=== PATIENT | female | born 1950 | race Caucasian/White ===

== ENCOUNTER 2017-06-11 09:12 | Inpatient (IN) | payer OTHER, MEDICARE ==
[~2017-06-11] VITALS: Ht 165.1 cm; Wt 105.0 kg
[~2017-06-11 09:12] MED LIST: ASPI81TA11 PO; ESSE250T PO; FISH1000 PO; GLIP5TAB8 PO; LEVO75TA3 PO; LISI10TA3 PO; METF1000 PO; METO25TA3 PO; PRAV20TA2 PO; TRAM50TA PO
[2017-06-11] MEDS ORDERED: VANCOMYCIN 1000 MG/NS 250 ML (for <70 kg) IV SCH ×2 (09:45)
[2017-06-11] MEDS ORDERED: POVIDONE IODINE 7.5% SCRUB 118 ML BOTTLE TOPICAL SCH (09:45)
[2017-06-11] MEDS ORDERED: POVIDONE IODINE 5% (ANTISEPSIS KIT) 4 APPLICATIONS EACH NARE PRN (10:00)
[2017-06-11] MEDS ORDERED: CHLORHEXIDINE GLUCONATE 2 % 1 PACK (2 CLOTHS) TOPICAL PRN (10:00)
[2017-06-11] MEDS ORDERED: METOPROLOL TARTRATE 25 MG TAB PO PRN (10:00)
[2017-06-11] MEDS ORDERED: LACTATED RINGER'S 1000 ML IV PRN (10:00)
[2017-06-11] MEDS ORDERED: SODIUM CHLORID 0.9% 500 ML IV PRN (10:00)
[2017-06-11] MEDS ORDERED: INSULIN HUMAN REGULAR 1,000 UNITS/10 ML VIAL SQ PRN (10:00)
[2017-06-11] MEDS ORDERED: GLUCOCIL PO (10:09)
[2017-06-11] MEDS ORDERED: ceFAZolin INJ 1,000 MG VIAL ONE (10:42)
[2017-06-11] MEDS ORDERED: GELFOAM SIZE 100 ONE (10:42)
[2017-06-11] MEDS ORDERED: GENTAMICIN SULFATE 80 MG/2 ML VIAL ONE (10:42)
[2017-06-11] MEDS ORDERED: NEOSTIGMINE 3 MG/3 ML SYR IV ONE (13:26)
[2017-06-11] MEDS ORDERED: ePHEDrine/NS 25 MG/5 ML SYR IV ONE (13:26)
[2017-06-11] MEDS ORDERED: LACTATED RINGER'S 1000 ML INJ 2,000 ML IV ONE (13:26)
[2017-06-11] MEDS ORDERED: ONDANSETRON HCL 4 MG/2 ML VIAL IV PUSH ONE (13:26)
[2017-06-11] MEDS ORDERED: PROPOFOL 200 MG/20 ML AMP IV ONE (13:26)
[2017-06-11] MEDS ORDERED: ceFAZolin 2 GM PREMIX 50 ML ONE (14:20)
[2017-06-11] MEDS ORDERED: ACETAMINOPHEN 1000 MG/100 ML 0 ML IV ONE (14:30)
[2017-06-11] MEDS ORDERED: MIDAZOLAM HCL 2 MG/2 ML VIAL ONE (14:30)
[2017-06-11] MEDS ORDERED: FAMOTIDINE 20 MG/2 ML VIAL ONE (14:30)
[2017-06-11] MEDS ORDERED: DEXAMETHASONE SOD PHOS 4 MG/ML VIAL ONE (14:31)
[2017-06-11] MEDS ORDERED: ceFAZolin 2 GM PREMIX 50 ML IV SCH (15:30)
[2017-06-11] MEDS ORDERED: HYDROmorphone HCL PF 2 MG/ML VIAL ONE (16:46)
[2017-06-11] MEDS ORDERED: Post-op Orders (for Pharmacy) MISC XX ONE (17:45)
[2017-06-11] MEDS ORDERED: ACETAMINOPHEN/HYDROcodone 325 MG/7.5 MG TAB PO PRN ×2 (17:45)
[2017-06-11] MEDS ORDERED: ONDANSETRON HCL 4 MG/2 ML VIAL IV PRN (17:45)
[2017-06-11] MEDS ORDERED: SODIUM CHLORIDE 0.9% FLUSH 5 ML FLUSH IVF PRN (17:45)
[2017-06-11] MEDS ORDERED: BISACODYL 10 MG SUPP RECTAL PRN (17:45)
--- NOTE | 2017-06-11 17:46 | PD.OP ---
Operative Report Date of Surgery: Jun 11, 2017 Preoperative Diagnosis: status post anterior cervical fusion C6 7, stable. Osteophyte disc complex C4 5 and C5 6. Cervical spinal stenosis. Cervical radiculopathy Postoperative Diagnosis: Same Procedure: Posterior cervical fusion C4 5 and C5 6. Posterior spinal segmental instrumentation with bilateral facet cages and facet screw fixation C4 5 and C5 6. Left posterior iliac crest bone graft. Anesthesia: Gen. Surgeon: Wagner Burton Fingerprint Technician(s): STEFAN Lopez Operation and Findings: EBL: 50 cc INDICATIONS: This patient is a 66-year-old female with significant neck and arm pain. Investigative studies shows significant degenerative changes at C4 5 and C56 which is adjacent to the previous fusion of C6 7. The patient is being scheduled for ACDF at those levels. The patient's having staged posterior cervical fusion. The patient is at high risk of a nonunion because the patient' s previous anterior cervical fusion NOTE: Jacqueline Lopez PA-C was present for the entire surgical procedure as my dental assistant. In my medical opinion her skill and care was necessary for proper management of this patient PROCEDURE: The patient was brought the operating room and anesthetized in the supine position. The patient was positioned prone on a Krish table. The arms were placed out along the side and taping was utilized to ensure adequate visualization. AP and lateral radiographic images were used identifying the proper level and allowing excellent exposure for purpose of the cervical fusion. A timeout was done and antibiotics were given within a routine time window. A small incision was made over the left iliac crest bone graft. A series of cores of bone graft were harvested with a special percutaneous device. The bone graft was taken to the back table to be mixed with stem cell bone graft for the later part of the case Using AP and lateral radiographs, skin markings were made. On the right side and 18-gauge spinal needle was placed down to the proper level. The left side a separate incision was made and we used the [employer] system. Exposure was afforded down to the proper level. Under visualization, a chisel was placed down to the C5 6 level. This was confirmed under radiographs to be in proper position. Exposure was satisfactory. This is placed down into the facet joint at that level. A decorticating device was utilized decorticating the bone of the facet above and below. A retractor was placed down over the access chisel allowing exposure to the joint and exposure to the articular cartilage. A drilling system was utilized removing cartilage and bone this region followed by a rasp. On the back table demineralized bone matrix was mixed with Nucel stem cells and a autogenous bone graft. A combination of both these were then paced placed into proper cages. The cages were impacted into the proper position and checked again under AP and lateral fluoroscopic images. A transfixation screw was placed into the cage having excellent fixation into the facet joint of the level above. The back side of the cage was filled with additional bone graft which was tamped into position. The retractor was removed. On the right side a separate incision was made. Using the likewise sequence of access to the same level, an incision was made allowing visualization for placement of an access chisel which was placed into the joint followed by decortication with excellent visualization. A final retractor was positioned holding this while we were able to drill and use the rasp. The joint was prepared and we created a space for the cage. The cage was filled with bone graft and impacted in proper position. A transfixation screw was fixated at that time and alignment was satisfactory. Additional bone graft placed along the posterior aspect of the cage and the facet joint and was tamped into position. At the C4 5 level, this was repeated in the likewise fashion. A decorticating device was utilized decorticating the bone of the facet above and below. A retractor was placed down over the access chisel allowing exposure to the joint and exposure to the articular cartilage. A drilling system was utilized removing cartilage and bone this region followed by a rasp. On the back table demineralized bone matrix was mixed with Nucel stem cells and a autogenous bone graft. A combination of both these were then paced placed into proper cages. The cages were impacted into the proper position and checked again under AP and lateral fluoroscopic images. A transfixation screw was placed into the cage having excellent fixation into the facet joint of the level above. The back side of the cage was filled with additional bone graft which was tamped into position. The retractor was removed. On the right side this was repeated in the likewise fashion. Using the likewise sequence of access to the same level. An access chisel was placed into the joint followed by decortication with excellent visualization. A final retractor was positioned holding this while we were able to drill and use the rasp. The joint was prepared and we created a space for the cage. The cage was filled with bone graft and impacted in proper position. A transfixation screw was fixated at that time and alignment was satisfactory. Additional bone graft placed along the posterior aspect of the cage and the facet joint and was tamped into position. Intraoperative x-rays in AP and lateral plane showed excellent positioning and stabilization . The wound was irrigated copiously. Hemostasis was controlled. The fascia was closed with interrupted Vicryl suture skin and subcutaneous tissue with 3-0 Vicryl suture followed by Dermabond. The sponge count needle counts and sponge counts were all correct. The patient tolerated the procedure well as taken to the recovery room in satisfactory condition. FINDINGS: There was severely arthritic facet joints the left at C4 5 and C5 6. The final fixation was felt be very satisfactory. No complication was appreciated. Wagner Burton MD Jun 11, 2017 17:46
[2017-06-11] MEDS ORDERED: HYDR-3580 PO (17:47)
--- NOTE | 2017-06-11 18:02 | RADRPT ---
EXAM DATE/TIME: 06/11/2017 17:30 [facility] COMPARISON: No previous studies available for comparison. INDICATIONS : C4-C6 posterior cervical fusion. MEDICAL HISTORY : None. SURGICAL HISTORY : Fusion, cervical. ENCOUNTER: Initial ACUITY: 1 day PAIN SCORE: Non-responsive. LOCATION: Bilateral neck FINDINGS: The patient is status post posterior cervical fusion at C4-C6. Bilateral reticular facet fusion hardw are at C4-5 and C5-6 articular facet joints noted. In addition ACDF hardware at C6-7 is present. CONCLUSION: Postsurgical changes. Eleuterio Plasencia MD on June 11, 2017 at 18:00 Board Certified Radiologist. This report was verified electronically.
[2017-06-11] MEDS ORDERED: fentaNYL CITRATE 250 MCG/5 ML AMP ONE (18:09)
[2017-06-11] MEDS: LACTATED RINGER'S 1000 ML INJ 1,000 ML IV SCH (18:15)
[2017-06-11] MEDS ORDERED: *morphine SULFATE 8 MG/ML PERIprocedure ONLY ONE ×2 (18:17→18:45)
[2017-06-11] MEDS ORDERED: *LABETALOL HCL 100 MG/20 ML VIAL PERIprocedural Use ONLY ONE (18:18)
[2017-06-11] MEDS ORDERED: *ENALAPRILAT 1.25 MG/ML VIAL PERIprocedural Use ONLY ONE ×2 (18:38→18:59)
[2017-06-11 19:38] VITALS: BP 186/84; PULSE 76; RESP 18; TEMP 96.5; O2SAT 96
[2017-06-11] MEDS ORDERED: DO NOT ADM ANY ANTICOAGULANT DRUGS PRN (19:45)
[2017-06-11] MEDS: SODIUM CHLORIDE 0.9% FLUSH 5 ML FLUSH IVF SCH (21:00)
[2017-06-11 23:30] VITALS: BP 166/74; PULSE 77; RESP 18; TEMP 97.5; O2SAT 96
[2017-06-12] MEDS: MORPHINE SULFATE 4 MG/ML INJ IV PUSH PRN ×2 (01:18→05:16)
[2017-06-12 04:25] VITALS: BP 157/70; PULSE 78; RESP 18; TEMP 96.7; O2SAT 97
[2017-06-12] MEDS ORDERED: LEVOTHYROXINE SODIUM 75 MCG TAB PO SCH (06:00)
[2017-06-12] MEDS: LACTATED RINGER'S 1000 ML INJ 1,000 ML IV SCH (06:10)
[2017-06-12] MEDS: glipiZIDE 5 MG TAB PO SCH ×2 (06:52→16:00)
[2017-06-12 08:00] VITALS: BP 131/59; PULSE 76; RESP 17; TEMP 97; O2SAT 94
--- NOTE | 2017-06-12 08:37 | HHI.DCPOC ---
Discharge Care Plan Diagnosis: (1) Cervical spinal stenosis (2) History of cervical spinal surgery Your Health Problems Are: Incision/Drains Swelling Goals to Promote Your Health * To prevent worsening of your condition and complications * To maintain your health at the optimal level Directions to Meet Your Goals Take your medications as prescribed Follow your dietary instruction Follow activity as directed Keep your appointments as scheduled Take your immunizations and boosters as scheduled If your symptoms worsen call your PCP, if no PCP go to Urgent Care Center or Emergency Room Smoking is Dangerous to Your Health. Avoid second hand smoke Call the 24-hour hour crisis hotline for domestic abuse at Amparo Lui Jun 12, 2017 08:37
[2017-06-12] MEDS ORDERED: METOPROLOL TARTRATE 25 MG TAB PO SCH (09:00)
[2017-06-12] MEDS ORDERED: LISINOPRIL 10 MG TAB PO SCH (09:00)
[2017-06-12] MEDS ORDERED: PRAVASTATIN SOD 20 MG TAB PO SCH (09:00)
[2017-06-12] MEDS ORDERED: metFORMIN HCL 500 MG TAB PO SCH (09:00)
[2017-06-12] MEDS: SODIUM CHLORIDE 0.9% FLUSH 5 ML FLUSH IVF SCH (09:00)
[2017-06-12] MEDS ORDERED: MULTIVITAMINS/MINERALS THERAPEUTIC TAB PO SCH (09:00)
[2017-06-12] MEDS ORDERED: DOCUSATE SODIUM 100 MG CAP PO SCH (09:00)
[2017-06-12 10:06] VITALS: O2SAT 95
[2017-06-12 12:00] VITALS: BP 134/66; PULSE 86; RESP 17; TEMP 96.5; O2SAT 96
--- NOTE | 2017-06-12 13:26 | HHI.DS ---
Discharge Summary Admission Date Jun 11, 2017 at 09:12 Discharge Date: Jun 12, 2017 Admitting Diagnosis see below Diagnosis: (1) Cervical spinal stenosis Diagnosis: Principal ICD Codes: M48.02 - Spinal stenosis, cervical region (2) History of cervical spinal surgery Diagnosis: Secondary ICD Codes: Z98.890 - Other specified postprocedural states Procedures Posterior cervical fusion C45, C56, bone graft. Brief History This is a 66 year old female patient with a long history of neck and arm pain. She had an ACDF in 1998 at C67 and did well for a period of time. After several years she began having neck and arm pain and sought out treatment with a chiropracter. She did not see much improvement so she sought out care with Dr. Kwabena Burton. Imaging studies were performed showing advanced degenerative changes C45 and C56. Conservative measures were attempted with meloxicam and a cervical collar. She continued to decline so a cervical MRI was ordered. She was found to have substantial stenosis C45 and C56. Surgical treatment was recommended beginning with posterior cervical fusion followed by staged anterior cervical fusion. She was referred to Dr. Wagner Burton for the posterior procedure. She agreed and presents for the above posterior cervical fusion C4-6. Hospital Course Surgical treatment was performed on the day of admission without complication. She recovered well in PACU and was transferred to the orthopaedic floor. Pain was controlled with IV and oral medications. She was compliant with her cervical collar and all restrictions. After 1 days she was found to be stable and discharged home with instruction to continue her cervical collar for 4-5 weeks, to pursue a soft, high fiber diet for 3-5 days and to follow up postop for staged surgery in 2-3 weeks. Pt Condition on Discharge: Stable Discharge Disposition: Discharge Home Discharge Instructions Diet Instructions: Diabetic Diet, Soft Diet, High Fiber Diet Activities You Can Perform: Weight Bearing as [place], See Additionl Instruction Activities to Avoid: Strenuous Activity Additional Activity Instruc.: Cervical brace full-time New Medications: Hydrocodone-Acetaminophen (Hydrocodone-Acetaminophen) 7.5-325 mg Tab 1 TAB PO Q4H PRN for pain, #50 TAB Continued Medications: Aspirin DR (Aspirin EC) 81 Mg Tabdr 81 MG PO DAILY, TAB 0 Refills Glipizide (Glipizide) 5 Mg Tab 2.5 MG PO BIDAC for Blood Sugar Management, #60 TAB 0 Refills Take 30 minutes before a meal Levothyroxine (Levothyroxine) 75 Mcg Tab 75 MCG PO DAILY for Thyroid, #30 TAB 0 Refills Lisinopril (Lisinopril) 10 Mg Tab 10 MG PO DAILY, #30 TAB 0 Refills Magnesium (Magnesium) 250 Mg Tab 1 TAB PO BID for Nutritional Supplement Metformin (Metformin) 1,000 Mg Tab 1000 MG PO DAILY for Blood Sugar Management, #30 TAB 0 Refills With a meal Metoprolol Tartrate (Metoprolol Tartrate) 25 Mg Tab 25 MG PO DAILY for Blood Pressure Management, #30 TAB 0 Refills [place]-3 Fatty Acids (Fish Oil) 1,000 Mg Cap 1 CAP PO DAILY for Nutritional Supplement Pravastatin (Pravastatin) 20 Mg Tab 20 MG PO DAILY for Cholesterol Management, #30 TAB 0 Refills Tramadol (Tramadol) 50 Mg Tab 50 MG PO Q8H PRN for PAIN, TAB 0 Refills [Glucocil] () 1 CAP PO DAILY Amparo Lui Jun 12, 2017 13:26
[2017-06-12] MEDS ORDERED: WALKER WHEELS/F1 MIS (13:27)
--- NOTE | 2017-06-12 13:30 | PD.ORT.PN ---
Subjective Subjective Remarks She states she has moderate posterior neck pain. She denies any new radiating arm pain. Her throat is quite sore but she states she can swallow. She feel off balance and has questions about using a walker. She has many questions about her surgery yesterday and her scheduled surgery in 2 weeks. Objective Vitals Vital Signs Date Time Temp Pulse Resp B/P (MAP) Pulse Ox O2 Delivery O2 Flow Rate FiO2 06/12/17 12:00 96.5 86 17 134/66 (88) 96 06/12/17 10:06 95 06/12/17 08:00 97.0 76 17 131/59 (83) 94 06/12/17 05:35 21 06/12/17 04:25 96.7 78 18 157/70 (99) 97 06/11/17 23:30 97.5 77 18 166/74 (104) 96 06/11/17 19:38 96.5 76 18 186/84 (118) 96 06/11/17 19:05 67 12 179/83 (115) 99 Nasal Cannula 3 06/11/17 18:45 71 15 176/79 (111) 98 Nasal Cannula 3 06/11/17 18:30 72 12 170/65 (100) 98 Nasal Cannula 4 06/11/17 18:15 77 19 187/85 (119) 98 Nasal Cannula 4 06/11/17 18:02 98.5 84 15 179/87 (117) 98 Nasal Cannula 4 I/O 06/11/17 06/11/17 06/11/17 06/12/17 06/12/17 06/12/17 07:00 15:00 23:00 07:00 15:00 23:00 Intake Total 2280 ml 440 ml Output Total 100 ml Balance 2180 ml 440 ml Intake Oral 480 ml 440 ml Other 1800 ml Output Estimated Blood Loss 100 ml # Voids 1 3 # Bowel Movements 0 0 Procedures Posterior cervical fusion C45, C56, bone graft. Objective Remarks Laying in bed at bedside NAD VSS C/S Posterior dressings c/d/i, minimal drainage, mild swelling and spasm, no erythema +motor biceps, +sens, +nvi Assessment & Plan Ortho Post Op Day #: 1 Problem List: (1) Cervical spinal stenosis ICD Codes: M48.02 - Spinal stenosis, cervical region (2) History of cervical spinal surgery ICD Codes: Z98.890 - Other specified postprocedural states Assessment and Plan pod#1 s/p Post C/S Fusion C4-6, bone graft. Ok to d/c home today. No hhc needed. Will order a walker for balance. Dry dressing changes daily. Continue cervical collar x 6 weeks. PO pain meds as needed. Encouraged soft foods, high fiber diet for next 3-5 days. F/U in 10 days as scheduled. Amparo Lui Jun 12, 2017 13:30
== END 2017-06-12 17:22 | disposition home or self-care (01) | DRG 473 ==
LOC: HSDI 09:12 → N06B 19:36 → EDSTATUS 06-13 14:00
PROVIDERS: ADMIT Orthopaedic Surgery Orthopaedic Surgery of the Spine; ATTEND Orthopaedic Surgery Orthopaedic Surgery of the Spine
PROC: 07DR3ZZ Extraction of Iliac Bone Marrow, Percutaneous Approach (ICD-10-PCS; 2017-06-11)
PROC: 0RG20AJ Fusion of 2 or more Cervical Vertebral Joints with Interbody Fusion Device, Posterior Approach, Anterior Column, Open Approach (ICD-10-PCS; principal; 2017-06-11 15:36)
DX: M48.02 Spinal stenosis, cervical region (principal); I10 Essential (primary) hypertension; M25.78 Osteophyte, vertebrae; E03.9 Hypothyroidism, unspecified; E11.9 Type 2 diabetes mellitus without complications; E78.00 Pure hypercholesterolemia, unspecified; Z98.1 Arthrodesis status; Z79.84 Long term (current) use of oral hypoglycemic drugs; M50.221 Other cervical disc displacement at C4-C5 level; M50.121 Cervical disc disorder at C4-C5 level with radiculopathy
CPT/HCPCS: 72040; 76000; 82948; 94150; C1713; J0131; J0690; J1100; J1170; J1580; J2250; J2270; J2405; J2710; J3010; J3370; J7050; J7120

== ENCOUNTER 2017-06-27 05:40 | Inpatient (IN) | payer OTHER, MEDICARE ==
[~2017-06-27] VITALS: Ht 165.1 cm; Wt 106.6 kg
[~2017-06-27 05:40] MED LIST changes: +GLUCOCIL PO; +HYDR-3580 PO; +WALKER WHEELS/F1 MIS
[2017-06-27] MEDS ORDERED: VANCOMYCIN 1000 MG/NS 250 ML (for <70 kg) IV SCH ×2 (06:00)
[2017-06-27] MEDS ORDERED: CHLORHEXIDINE GLUCONATE 4% SOLN 120 ML BTL TOPICAL SCH (06:00)
[2017-06-27] MEDS ORDERED: ceFAZolin 2 GM PREMIX 50 ML IV SCH (06:00)
[2017-06-27] MEDS ORDERED: POVIDONE IODINE 5% (ANTISEPSIS KIT) 4 APPLICATIONS EACH NARE PRN (06:15)
[2017-06-27] MEDS ORDERED: METOPROLOL TARTRATE 25 MG TAB PO PRN (06:15)
[2017-06-27] MEDS ORDERED: INSULIN HUMAN REGULAR 1,000 UNITS/10 ML VIAL SQ PRN (06:15)
[2017-06-27] MEDS ORDERED: CHLORHEXIDINE GLUCONATE 2 % 1 PACK (2 CLOTHS) TOPICAL PRN (06:15)
[2017-06-27] MEDS ORDERED: LACTATED RINGER'S 1000 ML IV PRN (06:15)
[2017-06-27] MEDS ORDERED: SODIUM CHLORID 0.9% 500 ML IV PRN (06:15)
[2017-06-27] MEDS ORDERED: GENTAMICIN SULFATE 80 MG/2 ML VIAL ONE (06:17)
[2017-06-27] MEDS ORDERED: BUPIVACAINE/EPINEPHRINE 0.25% 50 ML VIAL ONE (06:17)
[2017-06-27] MEDS ORDERED: BETAMETHASONE SOD PHOS/ACETATE SUSP 30 MG/5 ML VIAL ONE (06:42)
[2017-06-27] MEDS ORDERED: HYDROmorphone HCL PF 2 MG/ML VIAL ONE ×2 (07:32→12:24)
[2017-06-27] MEDS ORDERED: MIDAZOLAM HCL 2 MG/2 ML VIAL ONE (08:22)
[2017-06-27] MEDS: LACTATED RINGER'S 1000 ML INJ 1,000 ML IV SCH ×2 (13:11→14:10)
[2017-06-27] MEDS ORDERED: MORPHINE SULFATE 8 MG/ML INJ IV PUSH PRN (13:15)
[2017-06-27] MEDS ORDERED: ONDANSETRON HCL 4 MG/2 ML VIAL IV PRN (13:15)
[2017-06-27] MEDS ORDERED: SODIUM CHLORIDE 0.9% FLUSH 5 ML FLUSH IVF PRN (13:15)
[2017-06-27] MEDS ORDERED: Post-op Orders (for Pharmacy) MISC XX ONE (13:15)
[2017-06-27] MEDS ORDERED: ALUMINUM/MAGNESIUM/SIMETH 30 ML CUP PO PRN (13:15)
[2017-06-27] MEDS ORDERED: PROMETHAZINE INJ 25 MG/ML VIAL IM PRN (13:15)
[2017-06-27] MEDS ORDERED: ACETAMINOPHEN/HYDROcodone 325 MG/10 MG TAB PO PRN (13:15)
[2017-06-27] MEDS ORDERED: LACTATED RINGER'S 1000 ML INJ 3,000 ML IV ONE (13:16)
[2017-06-27] MEDS ORDERED: ePHEDrine/NS 25 MG/5 ML SYR IV ONE (13:16)
[2017-06-27] MEDS ORDERED: PROPOFOL 200 MG/20 ML AMP IV ONE (13:16)
[2017-06-27] MEDS ORDERED: ONDANSETRON HCL 4 MG/2 ML VIAL IV PUSH ONE (13:16)
[2017-06-27] MEDS ORDERED: PHENYLEPH/NS 1000 MCG/10 ML SYR IV ONE (13:16)
--- NOTE | 2017-06-27 13:23 | RADRPT ---
EXAM DATE/TIME: 06/27/2017 09:34 [facility] COMPARISON: No previous studies available for comparison. INDICATIONS : C4-C5 C5-C6 anterior interbody fusion, C6-C7 hardware removal. MEDICAL HISTORY : None. SURGICAL HISTORY : Fusion, cervical. ENCOUNTER: Initial ACUITY: 1 day PAIN SCORE: Non-responsive. LOCATION: c-spine FINDINGS: HR examination demonstrates centered cervical fusion at 2 levels with gross anatomical alignment. CONCLUSION: Intact postsurgical changes for technique. Mg Butts MD on June 27, 2017 at 13:21 Board Certified Radiologist. This report was verified electronically.
--- NOTE | 2017-06-27 13:24 | HHI.PR ---
Immediate Post Op Note Procedure Date: Jun 27, 2017 Pre Op Diagnosis: (1) Cervical spinal stenosis Post Op Diagnosis: (1) Cervical spinal stenosis Surgeon: Kwabena Burton M.D. Shelter Monitor(s): Rossana Schwab PA-C Procedure: C4-6 ACDF, removal C6-7 anterior spinal instrumentation Complications: none Anesthesia: General Drains: Other ([place] ) Patient to: PACU Patient Condition: Good Implant/Devices: SEE IMPLANT LOG (if applicable) Date/Time of Procedure: SEE SURGICAL CARE RECORD Kwabena Burton MD Jun 27, 2017 13:24
[2017-06-27] MEDS ORDERED: *LABETALOL HCL 100 MG/20 ML VIAL PERIprocedural Use ONLY ONE (13:32)
[2017-06-27] MEDS ORDERED: PILL SPLITTER OTHER PRN (14:00)
[2017-06-27] MEDS ORDERED: *morphine SULFATE 8 MG/ML PERIprocedure ONLY ONE (14:03)
[2017-06-27] MEDS ORDERED: DO NOT ADM ANY ANTICOAGULANT DRUGS PRN (14:30)
--- NOTE | 2017-06-27 14:34 | PD.CONS ---
HPI Service [facility] Consult Requested By DR. SOO BERMUDEZ Reason for Consult Medical Management Primary Care Physician Non-Staff Diagnoses: History of Present Illness This is a pleasant 66 y/o Female with chronic low back pain, had Compression fracture, has Hypertension Hyperlipidemia, DM II, CAD, Hypothyroidism. The patient had recent Hospitalization with Diagnosis of Osteophyte disc complex C4-5 and C5-6, Cervical spinal stenosis, Cervical radiculopathy, Status post Cervical Fusion C4-C5 and C5-C6, posterior spinal segmental instrumentation with bilateral facet cages and facet screw fixation C4-C5 and C5-C6, Left Posterior Iliac crest bone graft. On this admission with Diagnosis of Degeneration of Cervical intervertebral disc brought in for Exploration and removal of C6-C7 spinal instrumentation. she has also obesity, Seen in PACU nurse present and complaining of sore throat. Review of Systems Constitutional: DENIES: Fever, Chills, Change in appetite Endocrine: DENIES: Heat/cold intolerance Eyes: DENIES: Blurred vision, Eye pain Musculoskeletal: COMPLAINS OF: Joint pain Except as stated in HPI: all other systems reviewed are Neg Past Family Social History Allergies: Coded Allergies: Iodinated Contrast- Oral and IV Dye (Verified Allergy, Severe, Rash, ) adhesive (Verified Allergy, Severe, rash/itch, 06/27/17) PAPER TAPE [place] diatrizoate meglumine (Unverified Allergy, Severe, Rash, 06/11/17) gadobenic acid (Unverified Allergy, Severe, Rash, 06/11/17) gadodiamide (Unverified Allergy, Severe, Rash, 06/11/17) gadoteridol (Unverified Allergy, Severe, Rash, 06/11/17) iodixanol (Unverified Allergy, Severe, Rash, 06/11/17) iohexol (Unverified Allergy, Severe, Rash, 06/11/17) penicillin G (Verified Allergy, Severe, Rash, 06/27/17) Uncoded Allergies: tape (Allergy, Severe, Rash, 06/10/17) Past Medical History Hypertension Hyperlipidemia CAD chronic pain syndrome DM II Hypothyroidism Obesity Past Surgical History Cholecystectomy ALEXA Left Shoulder surgery Cervical spine surgery. Reported Medications Reported Meds & Active Scripts Active Walker with Front Wheels (Device) 1 Mis Mis Ea .ROUTE DIRECTED Hydrocodone-Acetaminophen 7.5-325 mg Tab 1 Tab PO Q4H PRN Reported [Glucocil] 1 Cap PO BID Tramadol (Tramadol HCl) 50 Mg Tab 50 Mg PO Q8H PRN Aspirin EC (Aspirin) 81 Mg Tabdr 81 Mg PO DAILY Pravastatin 20 Mg Tab 20 Mg PO DAILY Metoprolol Tartrate 25 Mg Tab 25 Mg PO DAILY Lisinopril 10 Mg Tab 10 Mg PO DAILY Levothyroxine (Levothyroxine Sodium) 75 Mcg Tab 75 Mcg PO DAILY Glipizide 5 Mg Tab 2.5 Mg PO BIDAC Take 30 minutes before a meal Metformin (Metformin HCl) 1,000 Mg Tab 1,000 Mg PO DAILY With a meal Fish Oil ([place]-3 Fatty Acids) 1,000 Mg Cap 1 Cap PO DAILY Magnesium 250 Mg Tab 1 Tab PO BID Active Ordered Medications Current Medications Medications (Trade) Dose Ordered Sig/Mary Route Start Time Stop Time Status Last Admin (Hibiclens 4% Top Soln) 1 applic ONCE TOPICAL 06/27/17 06:00 06/30/17 05:59 06/27/17 07:06 Cefazolin Sodium/ Dextrose 50 ml @ 100 mls/hr DISTRIBUTION DRIVER IV 06/27/17 06:00 06/30/17 05:59 06/27/17 10:24 Vancomycin HCl 1000 mg/Sodium Chloride 250 ml @ 250 mls/hr DISTRIBUTION DRIVER IV 06/27/17 06:00 06/30/17 05:59 06/27/17 07:20 (Betadine 5% Antisepsis Kit) 1 applic DISTRIBUTION DRIVER PRN EACH NARE 06/27/17 06:15 06/30/17 06:14 (Chlorhexidine 2% Cloth) 3 pack DISTRIBUTION DRIVER PRN TOPICAL 06/27/17 06:15 06/30/17 06:14 (NovoLIN R INJ) See Protocol Table ... DISTRIBUTION DRIVER PRN SQ 06/27/17 06:15 06/30/17 06:14 (Glucotrol) 2.5 mg BIDAC PO 06/27/17 16:00 (Synthroid) 75 mcg DAILY@0600 PO 06/28/17 06:00 (Prinivil) 10 mg DAILY PO 06/28/17 09:00 (Glucophage) 1,000 mg DAILY PO 06/28/17 09:00 (Lopressor) 25 mg DAILY PO 06/28/17 09:00 (Pravachol) 20 mg DAILY PO 06/28/17 09:00 Lactated Ringer's 1,000 ml @ 80 mls/hr [id number] IV 06/27/17 13:11 (NS Flush) 2 ml UNSCH PRN IVF 06/27/17 13:15 (NS Flush) 2 ml BID IVF 06/27/17 13:15 Cefazolin Sodium 1000 mg/Sodium Chloride 100 ml @ 200 mls/hr Q8H IV 06/27/17 18:00 06/28/17 10:29 (Morphine Inj) 5 mg Q3H PRN IV PUSH 06/27/17 13:15 (Phenergan Inj) 25 mg Q4H PRN IM 06/27/17 13:15 (Theragran M Tab) 1 tab BID PO 06/28/17 09:00 08/27/17 08:59 (Zofran Inj) 4 mg Q6H PRN IV 06/27/17 13:15 (Mag-Al Plus Susp Liq) 30 ml Q6H PRN PO 06/27/17 13:15 (Ambien) 5 mg HS PRN PO 06/27/17 21:00 ([place] 10-325 Mg) 1 tab Q6H PRN PO 06/27/17 13:15 ([place] 10-325 Mg) 2 tab Q6H PRN PO 06/27/17 13:15 (Pill Splitter) 1 ea UNSCH PRN OTHER 06/27/17 14:00 Miscellaneous Information ALL NURSING DEPARTME... UNSCH PRN .XX 06/27/17 14:30 06/28/17 14:29 Family History Mother with Alzheimer's Disease and DM II Father with CAD, COPD Social History denies any toxic habits. Physical Exam Vital Signs Vital Signs Date Time Temp Pulse Resp B/P (MAP) Pulse Ox O2 Delivery O2 Flow Rate FiO2 06/27/17 06:41 98.2 98 22 193/84 (120) 97 Physical Exam GENERAL: Obesity no acute distress. SKIN: Warm and dry. HEAD: Atraumatic. Normocephalic. EYES: Pupils equal and round. No injection or drainage. NECK: Cervical collar present and drainage. CARDIOVASCULAR: Regular rate and rhythm. RESPIRATORY: No accessory muscle use. Clear to auscultation. Breath sounds equal bilaterally. MUSCULOSKELETAL: No clubbing cyanosis or edema. NEUROLOGICAL: Awake and alert. Motor grossly within normal limits. 5 out of 5 strength in bilateral upper and lower extremities. Normal speech. PSYCHIATRIC: Appropriate mood and affect; insight and judgment normal. Imaging Last Impressions Cervical Spine X-Ray 06/27/17 0000 Signed Impressions: Service Date/Time: June 09:34 - CONCLUSION: Intact postsurgical changes for technique. Mg Butts MD Assessment and Plan Assessment and Plan 1. Degeneration of Cervical intervertebral disc brought in for Exploration and removal of C6-C7 spinal instrumentation. PT evaluation, procedure manager, Pain medicine. 2. Obesity strongly recommended diet and exercise as outpatient 3. Hypertension continue Home anti hypertensive medicine 4. Hyperlipidemia by history 5. OA with Diagnosis of Compression fracture, Osteophyte disc complex C4-5 and C5-6, Cervical spinal stenosis, Cervical radiculopathy, Status post Cervical Fusion C4-C5 and C5-C6, posterior spinal segmental instrumentation with bilateral facet cages and facet screw fixation C4-C5 and C5-C6, Left Posterior Iliac crest bone graft. Procedure from June 11 6. CAD by history 7. DM II on hold Oral Hypoglycemic medicines and continue sliding scale 8. Hypothyroidism to continue Hormonal replacement DVT prophylaxis as per Orthopedic Surgery. Code Status Full code. Discussed Condition With patient and nurse. Ponce Thomas MD Jun 27, 2017 14:34
[2017-06-27] MEDS ORDERED: RESP: ALBUTEROL 2.5 MG/IPRATROPIUM 0.5 MG NEB (PRN) NEB (16:00)
[2017-06-27] MEDS: INSULIN NovoLIN REGULAR SUPPLEMENTAL SCALE SQ SCH ×2 (16:00→21:00)
[2017-06-27] MEDS ORDERED: glipiZIDE 5 MG TAB PO SCH (16:00)
[2017-06-27 16:45] VITALS: BP 193/90; PULSE 91; RESP 17; TEMP 95.8; O2SAT 91
[2017-06-27] MEDS: ACETAMINOPHEN/HYDROcodone 325 MG/10 MG TAB PO PRN ×2 (17:19→23:47)
[2017-06-27] MEDS ORDERED: cloNIDine HCL 0.1 MG TAB PO PRN (18:30)
--- NOTE | 2017-06-27 19:09 | MP ---
cc: Les JOAQUIN,SOO JONES DATE OF SURGERY 06/27/17 PREOPERATIVE DIAGNOSIS 1. C4-5, C5-6 osteophyte disk complex, right greater than left foraminal stenosis, bilateral cervical radiculitis with bilateral upper extremity weakness. 2. Cervical spine degenerative disease osteoarthritis. 3. Status post C6-[address] Morris Moura [facility]. POSTOPERATIVE DIAGNOSIS 1. C4-5, C5-6 osteophyte disk complex, right greater than left foraminal stenosis, bilateral cervical radiculitis with bilateral upper extremity weakness. 2. Cervical spine degenerative disease osteoarthritis. 3. Status post C6-[address] Morris Moura [facility]. PROCEDURE C4-5, C5-6 anterior body fusion. C4-5, C5-6 SpineNet ACC anterior cervical cage; C4-C6 anterior spinal instrumentation using SpineNet Rauscher anterior spinal instrumentation. SURGEON Eddie Burton MD ASSESSMENT Rsosana Schwab PA-C ESTIMATED BLOOD LOSS 200 cc for entire case. COMPLICATIONS None. ANESTHESIA General. DRAIN 1. CONDITION Stable. PLAN OF ACTIVITY As per orders. PROCEDURE Dr. Wagner Burton and myself were co-surgeons. Dr. Wagner Burton performed the C4-5, C5-6 anterior cervical diskectomy, anterior decompression using an operative microscope C5 with C6-7 removal of anterior spinal instrumentation exploration anterior interbody fusion and left anterior iliac crest bone grafting. I performed the orthopedic fusion and spinal instrumentation procedure. This is well-described in my operative note. My food service assistant Rossana Schwab PA-C, was present for my portion of the entire surgical case. She was medically necessary for this portion of the case because of the complexity of the case and to facilitate the performance of the procedure. The FIREPOT OPERATOR AND TENDER at the back table not a skill set in this case to manipulate the instruments e.g. multiple different types soft tissue retractors, trial implants and also permanent implants. Dr. Wagner Burton performed his portion of the procedure first. The anterior instrumentation the anterior interspace. The interspace at C5-6 were prepared for fusion. The hyaline cartilage endplate was using angled curettes and burs. A 7 10 x 12 ACC cage placed in the interspace. Anterior iliac crest bone grafting was used under fluoroscopic guidance for interbody fusion. The cage itself was a 7 10 x 12 cage. The endplates at the C4-5 interspace was prepared for fusion. The hyaline cartilage endplate using angled curettes and burs. A 7 10 x 12 ACC cage placed interspace. Anterior iliac crest placed under fluoroscopic guidance for interbody fusion. Long flowing osteophytes removed using multiple different types of rongeurs and burs. A 43 mm SpineNet Rauscher anterior spinal instrumentation was used. Two spinal tacks were used to position the plate and was confirmed proper position with AP and lateral plane. Two screws were used in vertebral bodies C4, C5 and C6. The screws in C4 and C6 were 14 mm in length and the screws in C5 were 16 mm length. Each screws were 4.0 mm in diameter and all fixed angle screws. Each screws were drilled, appropriate screws were inserted and each screw head appropriately locked to the plate. Intraoperative fluoroscopy showed AP and lateral plane showed satisfactory position ACC cages at C4-5, C5-6, satisfactory instrumentation of the anterior interbody fusions at C4-5 and C5-6 and satisfactory position anterior spinal instrumentation from C4-C6. The previous spinal instrumentation to C6-7 was satisfactorily removed with a satisfactory interbody fusion. The wound was irrigated with copious amounts of sterile saline antibiotic solution. The wound itself was dry. The wound was closed in routine layers. It was closed over a 10-Chinese Westley drain. The wound was closed in multiple layers with 3-0 Vicryl sutures. Skin approximated with running subcuticular 4-0 Vicryl. Sterile Dermabond placed over the skin incision. Sterile dressing applied. The patient tolerated the procedure well and arrived to the recovery room in stable and satisfactory condition. MD ANDI Montgomery/PAMELA /1:07 PM /6:22 PM
[2017-06-27 20:11] VITALS: BP 146/65; PULSE 84; RESP 18; TEMP 96.8; O2SAT 99
[2017-06-27] MEDS ORDERED: ZOLPIDEM TARTRATE 5 MG TAB PO PRN (21:00)
[2017-06-27] MEDS: SODIUM CHLORIDE 0.9% FLUSH 5 ML FLUSH IVF SCH (21:00)
[2017-06-27] MEDS: guaiFENesin E.R. 600 MG TAB PO SCH (21:37)
[2017-06-28] VITALS: BP 125/62; PULSE 85; RESP 18; TEMP 96.5; O2SAT 98
[2017-06-28] MEDS ORDERED: MENTHOL LOZENGE BUCCAL PRN (00:30)
[2017-06-28 04:23] VITALS: BP 145/67; PULSE 87; RESP 18; TEMP 98.2; O2SAT 98
[2017-06-28] MEDS ORDERED: LEVOTHYROXINE SODIUM 75 MCG TAB PO SCH (06:00)
[2017-06-28] MEDS: INSULIN NovoLIN REGULAR SUPPLEMENTAL SCALE SQ SCH ×2 (07:00→11:00)
--- NOTE | 2017-06-28 07:02 | PD.ORT.PN ---
Subjective Subjective Remarks pt states headaches have resolved, arm pain improved does have sore throat, mild left hip soreness left ankle soreness medially Objective Vitals Vital Signs Date Time Temp Pulse Resp B/P (MAP) Pulse Ox O2 Delivery O2 Flow Rate FiO2 06/28/17 04:23 98.2 87 18 145/67 (93) 98 06/28/17 00:00 96.5 85 18 125/62 (83) 98 06/27/17 20:11 96.8 84 18 146/65 (92) 99 06/27/17 16:45 95.8 91 17 193/90 (124) 91 06/27/17 16:15 98.6 80 16 168/76 (106) 95 Nasal Cannula 06/27/17 16:00 83 17 181/82 (115) 100 06/27/17 15:45 82 17 196/88 (124) 100 06/27/17 15:30 84 15 171/80 (110) 100 06/27/17 15:15 91 18 177/81 (113) 99 06/27/17 15:00 84 13 178/80 (112) 100 06/27/17 14:45 80 11 169/78 (108) 100 06/27/17 14:30 80 13 186/81 (116) 100 06/27/17 14:15 84 12 176/81 (112) 100 06/27/17 14:00 88 14 183/84 (117) 100 06/27/17 13:45 92 18 178/86 (116) 100 06/27/17 13:30 101 23 218/95 (136) 99 Nasal Cannula 2 06/27/17 13:24 98.7 100 16 199/90 (126) 100 Nasal Cannula 3 I/O 06/27/17 06/27/17 06/27/17 06/28/17 06/28/17 06/28/17 06:59 14:59 22:59 06:59 14:59 22:59 Intake Total 2500 ml 580 ml 240 ml Output Total 70 ml 20 ml Balance 2500 ml 510 ml 220 ml Intake Oral 480 ml 240 ml IV Total 100 ml Other 2500 ml Drainage Total 70 ml 20 ml # Voids 4 3 # Bowel Movements 0 0 Objective Remarks Bristow collar in place cervical spine dressing dry and intact motor is +5/5 to UE left hip incision has no erythema, no ecchymosis left ankle, skin itself is clear, no bony tenderness Assessment & Plan Assessment and Plan POD # 1 s/p C4-6 ACDF with removal of C6-7 Bristow collar x 6-8 weeks Discharge home today, orthopedically stable follow up in office in 2 weeks for f/u visit as scheduled Kwabena Burton MD Jun 28, 2017 07:02
[2017-06-28 08:00] VITALS: BP 183/114; PULSE 120; RESP 17; TEMP 99.7; O2SAT 93
--- NOTE | 2017-06-28 08:03 | PD.OP ---
cc: Kwabena Burton MD; Wagner Burton MD Operative Report Date of Surgery: Jun 27, 2017 Preoperative Diagnosis: Status post anterior cervical fusion, C6 7. Osteophyte disc complex C4 5 and C5 6. Cervical radiculopathy Status post posterior cervical fusion, C4 5 and C5 6, recent Postoperative Diagnosis: Same Procedure: Exploration anterior cervical spine and anterior fusion with removal of segmental anterior spinal instrumentation, C6 7. Anterocervical discectomy decompression and bilateral foraminotomies, C4 5. Anterocervical discectomy decompression and bilateral foraminotomies, C5 6. Left anterior iliac crest bone graft Anesthesia: Gen. Surgeon: Wagner Burton Horse Wrangler(s): STEFAN Lopez Operation and Findings: EBL: 100 cc INDICATIONS: Patient is a 66-year-old female with a remote history of anterior cervical fusion C6 7. The patient presents with osteophyte disc complexes at C5 6 and C4 5. She's had extensive conservative care. Full details are outlined in the attached records. She presents for surgical treatment. NOTE: Jacqueilne Lopez PA-C was present for the entire surgical procedure as my administrative assistant data entry. In my medical opinion her skill and care was necessary for proper management of this patient PROCEDURE: The patient was brought to the operating room and anesthetized in the supine position. This patient was positioned supine on the radiolucent table. All pressure points were protected in the anterior cervical spine and iliac crest was scrubbed with alcohol followed by Hibiclens followed by ChloraPrep. A timeout was done and antibiotics were given within 1 hour time window. Lateral radiographic images were used identifying the proper level. A left anterior incision was made in line with skin creases. The platysma was opened in line with the incision. Deep dissection continued in the interval between the carotid sheath and the esophagus. The longus-coli muscles were lifted on both sides and retractors were positioned allowing good exposure. The surgery required meticulous dissection down to the C6-C7 level. There was significant scar tissue in that region because the previous surgery. This was dissected free allowing exposure of the anterior plate. There was a locking screw centrally at the top and bottom. This was removed with a proper device. The screws were removed in a retrograde fashion and the plate was removed. The fusion was explored and appeared to be solid. Lateral radiographic images were used to identify the proper level. [place] style interosseous pins were placed at C4 and C5 allowing exposure to that level. The microscope was rolled into the field. A total discectomy was accomplished and posterior osteophytes were removed. The posterior longitudinal ligament and annulus was taken down. Bilateral foraminotomies were accomplished. The endplates were squared up anticipating later bone grafting. A blunt probe could be placed out each foramen without evidence of nerve root compromise. The C4 pin was placed down to C6. An anterior exposure was accomplished. We performed a total discectomy with excision of the posterior annulus and posterior longitudinal ligament. Bilateral foraminotomies were accomplished. Osteophytes were removed. The endplates were squared up anticipating later bone grafting. A blunt probe could be placed out each foramen without evidence of nerve root compromise. The left iliac crest was approached. A small stab incision was made allowing percutaneous access to the anterior iliac crest. Multiple cores of cancellous bone were harvested and taken to the back table to be used for later bone grafting. The wound was irrigated anesthetized and closed with 4-0 Vicryl followed by Dermabond. The case was turned over to Dr. Kwabena Burton for fusion and instrumentation per his dictation. FINDINGS: There was evidence of significant disc herniation centrally at both levels. Significant stenosis was seen at both levels. The decompression was very satisfactory. No complication was appreciated. NOTE: This surgery was performed in 2 parts. The first part was the neurosurgical decompression performed under the variable power stereo microscope by the undersigned in addition to the bone graft. The second portion of the surgery will be performed by the orthopedic spine component by co -surgeon, Dr. Kwabena Burton for the anterior fusion with interbody cage and anterior plate. The skill of 2 surgeons was necessary to perform distinct separate procedural services as dictated above and dictated in the following operative note by Dr. Kawbena Burton. Wagner Burton MD Jun 28, 2017 08:03
[2017-06-28] MEDS ORDERED: MULTIVITAMINS/MINERALS THERAPEUTIC TAB PO SCH (09:00)
[2017-06-28] MEDS ORDERED: METOPROLOL TARTRATE 25 MG TAB PO SCH (09:00)
[2017-06-28] MEDS ORDERED: LISINOPRIL 10 MG TAB PO SCH (09:00)
[2017-06-28] MEDS ORDERED: PRAVASTATIN SOD 20 MG TAB PO SCH (09:00)
[2017-06-28] MEDS ORDERED: metFORMIN HCL 500 MG TAB PO SCH (09:00)
[2017-06-28] MEDS: SODIUM CHLORIDE 0.9% FLUSH 5 ML FLUSH IVF SCH (09:00)
[2017-06-28] MEDS: guaiFENesin E.R. 600 MG TAB PO SCH (09:06)
[2017-06-28] MEDS: ACETAMINOPHEN/HYDROcodone 325 MG/10 MG TAB PO PRN ×2 (09:07→16:08)
[2017-06-28 10:20] VITALS: O2SAT 93
--- NOTE | 2017-06-28 10:25 | HHI.PR ---
Subjective Remarks This is a pleasant 66 y/o Female with chronic low back pain, had Compression fracture, has Hypertension Hyperlipidemia, DM II, CAD, Hypothyroidism. The patient had recent Hospitalization with Diagnosis of Osteophyte disc complex C4-5 and C5-6, Cervical spinal stenosis, Cervical radiculopathy, Status post Cervical Fusion C4-C5 and C5-C6, posterior spinal segmental instrumentation with bilateral facet cages and facet screw fixation C4-C5 and C5-C6, Left Posterior Iliac crest bone graft. On this admission with Diagnosis of Degeneration of Cervical intervertebral disc brought in for Exploration and removal of C6-C7 spinal instrumentation. she has also obesity, Seen in PACU nurse present and complaining of sore throat. 06/28: Seen in her bedroom, discussed with nurse Miss Parra no new issues as per Orthopedic Surgery will be discharged home today, no nausea, vomit or diarrhea. Objective Vital Signs Date Time Temp Pulse Resp B/P (MAP) Pulse Ox O2 Delivery O2 Flow Rate FiO2 06/28/17 08:00 99.7 120 17 183/114 (137) 93 06/28/17 04:23 98.2 87 18 145/67 (93) 98 06/28/17 00:00 96.5 85 18 125/62 (83) 98 06/27/17 20:11 96.8 84 18 146/65 (92) 99 06/27/17 16:45 95.8 91 17 193/90 (124) 91 06/27/17 16:15 98.6 80 16 168/76 (106) 95 Nasal Cannula 06/27/17 16:00 83 17 181/82 (115) 100 06/27/17 15:45 82 17 196/88 (124) 100 06/27/17 15:30 84 15 171/80 (110) 100 06/27/17 15:15 91 18 177/81 (113) 99 06/27/17 15:00 84 13 178/80 (112) 100 06/27/17 14:45 80 11 169/78 (108) 100 06/27/17 14:30 80 13 186/81 (116) 100 06/27/17 14:15 84 12 176/81 (112) 100 06/27/17 14:00 88 14 183/84 (117) 100 06/27/17 13:45 92 18 178/86 (116) 100 06/27/17 13:30 101 23 218/95 (136) 99 Nasal Cannula 2 06/27/17 13:24 98.7 100 16 199/90 (126) 100 Nasal Cannula 3 I/O 06/27/17 06/27/17 06/27/17 06/28/17 06/28/17 06/28/17 07:00 15:00 23:00 07:00 15:00 23:00 Intake Total 2500 ml 580 ml 240 ml Output Total 70 ml 20 ml Balance 2500 ml 510 ml 220 ml Intake Oral 480 ml 240 ml IV Total 100 ml Other 2500 ml Drainage Total 70 ml 20 ml # Voids 4 3 # Bowel Movements 0 0 Imaging Last Impressions Cervical Spine X-Ray 06/27/17 0000 Signed Impressions: Service Date/Time: June 09:34 - CONCLUSION: Intact postsurgical changes for technique. Mg Butts MD Procedures Degeneration of Cervical intervertebral disc brought in for Exploration and removal of C6-C7 spinal instrumentation. Other Results Laboratory Tests Test 06/28/17 09:53 Objective Remarks GENERAL: Obesity no acute distress. SKIN: Warm and dry. HEAD: Atraumatic. Normocephalic. EYES: Pupils equal and round. No injection or drainage. NECK: Cervical collar present and drainage. CARDIOVASCULAR: Regular rate and rhythm. RESPIRATORY: No accessory muscle use. Clear to auscultation. Breath sounds equal bilaterally. MUSCULOSKELETAL: No clubbing cyanosis or edema. NEUROLOGICAL: Awake and alert. Motor grossly within normal limits. 5 out of 5 strength in bilateral upper and lower extremities. Normal speech. PSYCHIATRIC: Appropriate mood and affect; insight and judgment normal. Medications and IVs Current Medications Medications (Trade) Dose Ordered Sig/Mary Route Start Time Stop Time Status Last Admin (Hibiclens 4% Top Soln) 1 applic ONCE TOPICAL 06/27/17 06:00 06/30/17 05:59 06/27/17 07:06 Cefazolin Sodium/ Dextrose 50 ml @ 100 mls/hr HUMAN RESOURCES RECRUITER IV 06/27/17 06:00 06/30/17 05:59 06/27/17 10:24 Vancomycin HCl 1000 mg/Sodium Chloride 250 ml @ 250 mls/hr HUMAN RESOURCES RECRUITER IV 06/27/17 06:00 06/30/17 05:59 06/27/17 07:20 (Betadine 5% Antisepsis Kit) 1 applic HUMAN RESOURCES RECRUITER PRN EACH NARE 06/27/17 06:15 06/30/17 06:14 (Chlorhexidine 2% Cloth) 3 pack HUMAN RESOURCES RECRUITER PRN TOPICAL 06/27/17 06:15 06/30/17 06:14 (NovoLIN R INJ) See Protocol Table ... HUMAN RESOURCES RECRUITER PRN SQ 06/27/17 06:15 06/30/17 06:14 (Synthroid) 75 mcg DAILY@0600 PO 06/28/17 06:00 (Prinivil) 10 mg DAILY PO 06/28/17 09:00 06/28/17 09:06 (Lopressor) 25 mg DAILY PO 06/28/17 09:00 06/28/17 09:06 (Pravachol) 20 mg DAILY PO 06/28/17 09:00 06/28/17 09:06 Lactated Ringer's 1,000 ml @ 80 mls/hr [id number] IV 06/27/17 13:11 06/27/17 14:10 (NS Flush) 2 ml UNSCH PRN IVF 06/27/17 13:15 (NS Flush) 2 ml BID IVF 06/27/17 13:15 06/28/17 09:00 Cefazolin Sodium 1000 mg/Sodium Chloride 100 ml @ 200 mls/hr Q8H IV 06/27/17 18:00 06/28/17 10:29 06/28/17 09:06 (Morphine Inj) 5 mg Q3H PRN IV PUSH 06/27/17 13:15 06/28/17 04:00 (Phenergan Inj) 25 mg Q4H PRN IM 06/27/17 13:15 (Theragran M Tab) 1 tab BID PO 06/28/17 09:00 08/27/17 08:59 06/28/17 09:06 (Zofran Inj) 4 mg Q6H PRN IV 06/27/17 13:15 (Mag-Al Plus Susp Liq) 30 ml Q6H PRN PO 06/27/17 13:15 (Ambien) 5 mg HS PRN PO 06/27/17 21:00 ([place] 10-325 Mg) 1 tab Q6H PRN PO 06/27/17 13:15 ([place] 10-325 Mg) 2 tab Q6H PRN PO 06/27/17 13:15 06/28/17 09:07 (Pill Splitter) 1 ea UNSCH PRN OTHER 06/27/17 14:00 Miscellaneous Information ALL NURSING DEPARTME... UNSCH PRN .XX 06/27/17 14:30 06/28/17 14:29 (NovoLIN R SUPPLEMENTAL SCALE) 1 ACHS SLIDING SCALE SQ 06/27/17 16:00 (Duoneb Neb) 1 ampule Q4HR NEB PRN NEB 06/27/17 16:00 (Mucinex Er) 600 mg BID PO 06/27/17 21:00 06/28/17 09:06 (Catapres) 0.1 mg Q6H PRN PO 06/27/17 18:30 06/27/17 18:28 (Jackson Afsaneh) 1 lozenge UNSCH PRN BUCCAL 06/28/17 00:30 06/28/17 00:27 A/P Assessment and Plan 1. Degeneration of Cervical intervertebral disc brought in for Exploration and removal of C6-C7 spinal instrumentation. PT evaluation, international bank manager, Pain medicine. 2. Obesity strongly recommended diet and exercise as outpatient 3. Hypertension controlled now. 4. Hyperlipidemia by history 5. OA with Diagnosis of Compression fracture, Osteophyte disc complex C4-5 and C5-6, Cervical spinal stenosis, Cervical radiculopathy, Status post Cervical Fusion C4-C5 and C5-C6, posterior spinal segmental instrumentation with bilateral facet cages and facet screw fixation C4-C5 and C5-C6, Left Posterior Iliac crest bone graft. Procedure from June 11 6. CAD by history 7. DM II on hold Oral Hypoglycemic medicines and continue sliding scale, controlled with actual management, continue home medicines at discharge. 8. Hypothyroidism to continue Hormonal replacement DVT prophylaxis as per Orthopedic Surgery. Code Status Full code. Discussed Condition With Patient and nurse. Discharge Planning Hospitalist clear for discharge. Ponce Thomas MD Jun 28, 2017 10:25
[2017-06-28 10:32] LABS: AUTOMATED NEUTROPHIL # 7.7 TH/MM3 (1.8-7.7); BASOPHIL % 0.4 % (0.0-2.0); EOSINOPHIL # 0.1 TH/MM3 (0-0.4); EOSINOPHIL % 1.1 % (0.0-4.0); HEMATOCRIT 28.5 % (35.0-46.0); HEMO FLAGS DIFF FINAL; LYMPH % 10.2 % (9.0-44.0); LYMPHOCYTE # 0.9 TH/MM3 (1.0-4.8); MEAN CELL VOLUME 81.7 FL (80.0-100.0); MEAN CORPUSCULAR HEMOGLOBIN 27.2 PG (27.0-34.0); MEAN CORPUSCULAR HGB CONC 33.3 % (32.0-36.0); MONO % 5.9 % (0.0-8.0); NEUT % 82.4 % (16.0-70.0); PLATELET COUNT 320 TH/MM3 (150-450); RED BLOOD COUNT 3.49 MIL/MM3 (4.00-5.30); RED CELL DISTRIBUTION WIDTH 16.7 % (11.6-17.2); WHITE BLOOD COUNT 9.3 TH/MM3 (4.0-11.0)
[2017-06-28 10:52] LABS: ANION GAP 10 MEQ/L (5-15); BICARBONATE 23.1 MEQ/L (21.0-32.0); BLOOD UREA NITROGEN 9 MG/DL (7-18); CHLORIDE 100 MEQ/L (98-107); GLOMERULAR FILTRATION RATE 58 ML/MIN (>89); POTASSIUM 4.1 MEQ/L (3.5-5.1); SODIUM (NA) 133 MEQ/L (136-145)
[2017-06-28 11:03] LABS: FREE T4 1.26 NG/DL (0.76-1.46); HDL CHOLESTEROL 42.4 MG/DL (40.0-60.0); LDL CHOLESTEROL 52 MG/DL (0-99)
[2017-06-28 12:00] VITALS: BP 134/73; PULSE 90; RESP 18; TEMP 96.5; O2SAT 92
[2017-06-28] MEDS ORDERED: HYDR-3366 PO (15:49)
[2017-06-28 16:19] LABS: HEMOGLOBIN A1a 1.2 %; HEMOGLOBIN A1b 1.8 %; HEMOGLOBIN LA1C 2.5 %; HEMOGLOBIN P3 4.1 %
== END 2017-06-28 17:25 | disposition home or self-care (01) | DRG 473 ==
LOC: HSDI 05:40 → N06B 16:43
PROVIDERS: ADMIT Orthopaedic Surgery Orthopaedic Surgery of the Spine; ATTEND Orthopaedic Surgery Orthopaedic Surgery of the Spine
PROC: 0RG2070 Fusion of 2 or more Cervical Vertebral Joints with Autologous Tissue Substitute, Anterior Approach, Anterior Column, Open Approach (ICD-10-PCS; 2017-06-27)
PROC: 0RT30ZZ Resection of Cervical Vertebral Disc, Open Approach (ICD-10-PCS; 2017-06-27)
PROC: 0QB33ZZ Excision of Left Pelvic Bone, Percutaneous Approach (ICD-10-PCS; 2017-06-27)
PROC: 0RG20A0 Fusion of 2 or more Cervical Vertebral Joints with Interbody Fusion Device, Anterior Approach, Anterior Column, Open Approach (ICD-10-PCS; principal; 2017-06-27 08:22)
DX: M50.121 Cervical disc disorder at C4-C5 level with radiculopathy (principal); E11.40 Type 2 diabetes mellitus with diabetic neuropathy, unspecified; M47.22 Other spondylosis with radiculopathy, cervical region; M25.78 Osteophyte, vertebrae; I10 Essential (primary) hypertension; E03.9 Hypothyroidism, unspecified; E66.9 Obesity, unspecified; Z68.39 Body mass index [BMI] 39.0-39.9, adult
CPT/HCPCS: 72040; 76000; 76937; 80048; 80061; 82948; 83036; 84439; 84443; 85025; 94150; C1713; J0690; J0702; J1170; J1580; J2250; J2270; J2370; J2405; J3010; J3370; J7050; J7120